=== PATIENT | female | born 1970 | race Caucasian/White ===

== ENCOUNTER 2025-07-10 07:06 | Day surgery (SDC) | payer BC, OTHER ==
[2025-07-04 15:58] VITALS: BMI 27.6
[2025-07-10] MEDS ORDERED: Acetaminophen 500 MG TAB ONE (07:27)
[2025-07-10] MEDS ORDERED: Ketorolac Tromethamine 30 MG (1 mL) VIAL ONE (07:27)
[2025-07-10] MEDS ORDERED: CEFAZOLIN 2 GM VIAL ONE (08:36)
[2025-07-10] MEDS ORDERED: Bupivacaine/Epinephrine 0.25% 30 ML VIAL ONE (08:37)
[2025-07-10] MEDS ORDERED: Lidocaine 1% PF 5 ML VIAL ONE (09:14)
[2025-07-10] MEDS ORDERED: Ondansetron PF 4 MG/2 ML Vial ONE (09:14)
[2025-07-10] MEDS ORDERED: PROPOFOL 20 ML ONE (09:14)
[2025-07-10] MEDS ORDERED: SUGAMMADEX SODIUM 200 MG/2 ML VIAL ONE ×2 (09:14→11:01)
[2025-07-10] MEDS ORDERED: Rocuronium Bromide 10 MG/ML (10ML VIAL) ONE (09:14)
[2025-07-10] MEDS ORDERED: Lidocaine 4% PF 5 ML AMP ONE (09:14)
[2025-07-10] MEDS ORDERED: HYDROmorphone 0.5 MG/0.5 ML SYRINGE ONE ×2 (11:47→11:55)
[2025-07-10] MEDS ORDERED: HYDROcodone/Acetaminophen 5/325 mg Tablet ONE (12:18)
== END 2025-07-10 12:57 | disposition home or self-care (01) ==
LOC: CSHSDC 07:06
PROVIDERS: ATTEND Specialist
PROC: 0WUF4JZ Supplement Abdominal Wall with Synthetic Substitute, Percutaneous Endoscopic Approach (ICD-10-PCS; principal; 2025-07-10)
DX: K43.2 Incisional hernia without obstruction or gangrene (principal); E11.9 Type 2 diabetes mellitus without complications; E03.9 Hypothyroidism, unspecified; F41.9 Anxiety disorder, unspecified; G43.909 Migraine, unspecified, not intractable, without status migrainosus; Z98.84 Bariatric surgery status; Z90.710 Acquired absence of both cervix and uterus; Z90.49 Acquired absence of other specified parts of digestive tract; Z88.1 Allergy status to other antibiotic agents; Z79.890 Hormone replacement therapy; Z79.84 Long term (current) use of oral hypoglycemic drugs; Z79.85 Long-term (current) use of injectable non-insulin antidiabetic drugs; Z79.899 Other long term (current) drug therapy
CPT/HCPCS: 36416; C1781; J1100; J1171; J1885; J2405; J2704; J3010; S2900